=== PATIENT | male | born 1985 | race Caucasian/White ===

== ENCOUNTER 2023-12-15 10:35 | Outpatient (CLI) | payer BC, SELFPAY ==
--- NOTE | 2023-12-15 11:30 | DI.RAD_ITS ---
Exam(s) XR HAND LT COMPLETE EXAM: XR HAND LT COMPLETE CLINICAL HISTORY: fall, r/o 4th, 5th metacarpal injury. TECHNIQUE: 2D digital imaging was performed of the left hand. Four views were obtained. AP, latera l and oblique views were obtained. COMPARISON: No exams were available for comparison FINDINGS: BONES: No acute fracture is present. No bony destructive lesion is seen. JOINTS: No dislocation present. SOFT TISSUE: Normal. IMPRESSION: Unremarkable radiographs of the left hand. DATA REPOSITORY: RADIATION DOSE DELIVERED:
--- NOTE | 2023-12-15 11:30 | DI.RAD_ITS ---
Exam(s) XR WRIST LT COMP NAVICULAR EXAM: XR WRIST LT COMP NAVICULAR CLINICAL HISTORY: fall, wrist and hand injury r/o fx radial. TECHNIQUE: 2D digital imaging was performed of the left wrist. Four images were obtained. Scaphoid , PA, oblique and lateral views were obtained. COMPARISON: No exams were available for comparison FINDINGS: BONES: No acute fracture is present. No bony destructive lesion is seen. JOINTS: The carpal bones are normally aligned. SOFT TISSUE: Normal. IMPRESSION: Unremarkable radiographs of the left wrist. DATA REPOSITORY: RADIATION DOSE DELIVERED:
--- NOTE | 2023-12-15 12:12 | DI.VRAD_ITS ---
PROCEDURE INFORMATION: Exam: XR Left Hand Exam date and time: 12/15/2023 11:44 AM Age: 38 years old Clinical indication: Other: Fall, R/O 4th, 5th metacarpal injury TECHNIQUE: Imaging protocol: Radiologic exam of the left hand. Views: 3 or more views. COMPARISON: No relevant prior studies available. FINDINGS: Bones/joints: There is no evidence of acute fracture.There is no evidence of malalignment or dislocation. Soft tissues: Normal. IMPRESSION: There is no evidence of acute fracture.There is no evidence of malalignment or dislocation. Dictated and Authenticated by: Andi Burnham MD. Ordering:AHSLEY Chen MD
--- NOTE | 2023-12-15 12:13 | DI.VRAD_ITS ---
PROCEDURE INFORMATION: Exam: XR Left Wrist Exam date and time: 12/15/2023 11:47 AM Age: 38 years old Clinical indication: Other: Fall, wrist and hand injury R/O FX radial TECHNIQUE: Imaging protocol: Radiologic exam of the left wrist. Views: 3 or more views. COMPARISON: CR XR HAND LT COMPLETE 12/15/2023 11:44 AM FINDINGS: Bones/joints: There is no evidence of acute fracture.There is no evidence of malalignment or dislocation. Soft tissues: Normal. IMPRESSION: There is no evidence of acute fracture.There is no evidence of malalignment or dislocation. Dictated and Authenticated by: Andi Burnham MD. Ordering:ASHLEY Chen MD
== END 2023-12-15 10:55 ==
PROVIDERS: Visit Provider Physician Assistant
DX: M79.642 Pain in left hand (principal); S69.92XA Unspecified injury of left wrist, hand and finger(s), initial encounter; X58.XXXA Exposure to other specified factors, initial encounter
CPT/HCPCS: 73110; 73130